=== PATIENT | male | born 1940 | race Caucasian/White ===

== ENCOUNTER 2021-10-09 07:25 | Emergency (ER) | payer OTHER ==
[~2021-10-09] VITALS: Ht 167.6 cm; Wt 72.6 kg
[2021-10-09] MEDS ORDERED: UROXATRAL10 MG PO (07:38)
[2021-10-09] MEDS ORDERED: LOSARTAN POTAS100 MG PO (07:38)
[2021-10-09] MEDS ORDERED: AMLODIPINE-OLM1 EAC2 (07:38)
== END 2021-10-09 09:40 | disposition home or self-care (01) ==
LOC: ER 07:25
DX: S01.22XA Laceration with foreign body of nose, initial encounter (principal); W01.198A Fall on same level from slipping, tripping and stumbling with subsequent striking against other object, initial encounter; Y93.01 Activity, walking, marching and hiking; Y92.413 State road as the place of occurrence of the external cause; Y99.8 Other external cause status